=== PATIENT | female | born 1950 | race Two or more races ===

== ENCOUNTER 2018-02-01 10:22 | Outpatient (CLI) | payer OTHER | END 2018-02-01 10:26 | disposition home or self-care (01) | LOC: SONOGRAMA 10:22 → MAMO-SONO 10:45 | DX: Z12.31 Encounter for screening mammogram for malignant neoplasm of breast (principal); N61.0 Mastitis without abscess; E03.8 Other specified hypothyroidism ==

== ENCOUNTER 2021-01-01 14:23 | Outpatient (CLI) | payer OTHER | END 2021-01-01 14:24 | disposition home or self-care (01) | LOC: SONOGRAMA 14:23 → MAMO-SONO 14:45 | PROVIDERS: ATTEND Family Medicine | DX: N64.59 Other signs and symptoms in breast (principal); N64.1 Fat necrosis of breast ==